=== PATIENT | male | born 1960 | race Caucasian/White ===

== ENCOUNTER 2021-12-14 07:07 | Day surgery (SDC) | payer OTHER ==
[~2021-12-14] VITALS: Ht 167.6 cm; Wt 108.9 kg
[2021-12-14] MEDS ORDERED: MIDAZOLAM 5 MG/5 ML VIAL ONE ×2 (08:42→09:27)
[2021-12-14] MEDS ORDERED: fentaNYL citrate 0.05 MG/ML VIAL ONE ×2 (08:42→09:27)
[2021-12-14] MEDS ORDERED: diphenhydrAMINE 50 MG/ML VIAL ONE (09:26)
[2021-12-14] MEDS: MIDAZOLAM 2 MG/2 ML VIAL IVP ONE (09:30)
[2021-12-14] MEDS: fentaNYL citrate 0.05 MG/ML VIAL IVP ONE (09:31)
== END 2021-12-14 10:30 | disposition home or self-care (01) ==
LOC: MOR 07:07 → MMU 07:08 → MOR 10:30
PROVIDERS: ATTEND Internal Medicine Gastroenterology
DX: Z12.11 Encounter for screening for malignant neoplasm of colon (principal); I10 Essential (primary) hypertension; Z20.822 Contact with and (suspected) exposure to COVID-19; Z80.0 Family history of malignant neoplasm of digestive organs; Z79.899 Other long term (current) drug therapy
CPT/HCPCS: 45378; 87426; J2250; J3010; J1200